=== PATIENT | female | born 1955 | race Caucasian/White ===

== ENCOUNTER 2016-11-24 15:28 | Emergency (ER) | payer OTHER ==
[~2016-11-24 15:28] MED LIST: B COMPLETE PO; CALTRA600D PO; CLARIT10 PO; COREG25; CYANO1000T PO; CYMBALTA60 PO; EFFEX75 PO; EFFEXXR75 PO; ESTRACE0.5 MG PO; ESTRADIOL0.05 MG; FLEX PO; HALF81 PO; LORTAB10 PO; LYRICA75 PO; MAXIMUM D3 PO; MEPRAZOLE; MOBIC15 MG PO; MOBIC7.5 PO; NORCO1 TAB PO; NUCYNTA100 MG PO; OMEPRAZOLE; OS500+D PO; PCET PO; PLAVIX PO; PREM45 PO; PRILO PO; PRILOSEC OTC20 MG PO; PRILOSEC40 MG PO; RELPAX40 MG PO; VIACTIV; VITAMIN D1000 UNI1; VITAMIN D31000 UNIT PO
[2016-11-24 15:54] LABS: BASOPHILS 0.1 %; BASOPHILS ABSOLUTE 0.01 10/3/uL (0.0-0.16); EOSINOPHILS 0 %; ER CBC TAT 0 Hrs 11 Mins; IMMATURE GRANULOCYTES 0.3 %; IMMATURE GRANULOCYTES ABSOLUTE 0.02 10/3/uL (0.0-0.11); LYMPHOCYTES 19.9 %; LYMPHOCYTES ABSOLUTE 1.36 10/3/uL (0.67-4.30); MEAN CORPUSCULAR HEMOGLOB 29.3 pg (26.0-34.0); MEAN CORPUSCULAR VOLUME 86.5 fL (80-100); MEAN PLATELET VOLUME 10.3 fL (9.2-13.0); MONOCYTES 8.8 %; NEUTROPHILS 70.9 %; NEUTROPHILS ABSOLUTE 4.83 10/3/uL (2.02-8.40); PLATELET COUNT 292 10/3/uL (150-400); RBC DISTRIBUTION WIDTH 13.1 % (12.0-16.0); WHITE BLOOD CELLS 6.8 10/3/uL (4.5-10.5)
[2016-11-24 15:55] LABS: ASCORBIC ACID (UR NOT ORDER) 20 (NEG); BILIRUBIN, URINE NEGATIVE (NEG); ER URINALYSIS TAT 0 Hrs 12 Mins; KETONE, URINE 20 MG/DL (NEG); LEUKOCYTE ESTERASE(NOT OR TRACE (NEG); NITRITE (URINE) NEG (NEG); WBC (NOT ORDERED) (RFLEX) 5 (0-5)
[2016-11-24 15:59] LABS: HEMATOCRIT 52.5 % (36.0-48.0); HEMOGLOBIN 17.8 g/dL (12.0-16.0); MANUAL DIFF NO %; MEAN CORPUS HGB CONC 33.9 g/dL (32.0-36.0); RED CELL COUNT 6.07 10/6/uL (4.0-5.6)
[2016-11-24 16:04] LABS: A/G RATIO 0.9 (0.7-1.9); ALBUMIN 4.1 G/DL (3.5-5.0); ALKALINE PHOSPHATASE 150 U/L (45-117); BUN (BLOOD UREA NITROGEN) 17 MG/DL (6-23); CALCIUM, SERUM 9.4 MG/DL (8.5-10.4); CHLORIDE, SERUM 104 MMOL/L (96-112); CO2 (CARBON DIOXIDE) 21 MMOL/L (24-34); CREATININE 1.16 MG/DL (0.55-1.02); GFR AFRICAN AMERICAN 58 ML/MIN (>=60); GFR NON AFRICAN AMERICAN 50 ML/MIN (>=60); GLOBULIN 4.4 G/DL (2.5-4.1); GLUCOSE, SERUM 101 MG/DL (60-99); POTASSIUM, SERUM 4.2 MMOL/L (3.5-5.3); SGOT(AST) 54 U/L (5-40); SGPT(ALT) 52 U/L (5-65); SODIUM, SERUM 137 MMOL/L (135-148); TOTAL BILIRUBIN 0.6 MG/DL (0-1.2); TOTAL PROTEIN 8.5 G/DL (6.0-8.5)
== END 2016-11-24 21:35 | disposition home or self-care (01) ==
LOC: ER 15:28
PROVIDERS: Hospitalist
DX: E86.0 Dehydration (principal); R19.7 Diarrhea, unspecified; J44.9 Chronic obstructive pulmonary disease, unspecified; Z86.73 Personal history of transient ischemic attack (TIA), and cerebral infarction without residual deficits; Z79.899 Other long term (current) drug therapy
CPT/HCPCS: 74176; 80053; 81001; 83690; 85025; 93005; 96361; 96374; 99285; J2405